=== PATIENT | female | born 1990 ===

== ENCOUNTER → 2016-09-21 | Outpatient (REF) | payer OTHER ==
[2016-09-21 12:28] LABS: FREE T4 0.99 NG/DL (0.76-1.46)
== END ==
LOC: M LABDRAW1 11:27
PROVIDERS: ATTEND Physician Assistant Medical
DX: E06.3 Autoimmune thyroiditis (principal); E55.9 Vitamin D deficiency, unspecified

== ENCOUNTER → 2016-12-07 | Outpatient (REF) | payer OTHER ==
[2016-12-07 12:44] LABS: FREE T4 1.24 NG/DL (0.76-1.46)
== END ==
LOC: M LABDRAW1 11:12
PROVIDERS: ATTEND Internal Medicine Endocrinology, Diabetes & Metabolism
DX: E06.3 Autoimmune thyroiditis (principal); E55.9 Vitamin D deficiency, unspecified